=== PATIENT | female | born 1955 | race Caucasian/White ===

== ENCOUNTER → 2021-01-28 | Outpatient (CLI) | payer OTHER ==
[~2021-01-28] MED LIST: ASPI81CH PO; ATEN100 PO; ATOR40TA PO; Cyclobenzaprine10 MG PO; GABA300 PO; LOSA25 PO; METF500 PO
[2021-01-30 10:10] LABS: COTININE Negative ng/mL (Cutoff=300)
== END ==
LOC: LAB 11:42 → LAB SHORT 11:42
PROVIDERS: Orthopaedic Surgery
DX: Z01.812 Encounter for preprocedural laboratory examination (principal); M17.12 Unilateral primary osteoarthritis, left knee

== ENCOUNTER 2021-02-16 05:48 | Day surgery (SDC) | payer OTHER ==
[~2021-02-16] VITALS: Ht 167.6 cm; Wt 89.6 kg
[~2021-02-16 05:48] MED LIST changes: -ASPI81CH PO
--- NOTE | 2021-02-16 07:10 | NUR ---
Ambulatory in Day Surgery. Surgical site prepped with 2% Chlorhexidine cloth wipe. History, Chart, Medications and Allergies reviewed before start of procedure. Lungs clear T/O to Auscultation. Patient confirms NPO status and agrees with scheduled surgery. Pre-Op teaching done. Pt verbalizes understanding. Patient reports completing Chlorhexadine shower X2 prior to admission to hospital.
--- NOTE | 2021-02-16 10:56 | NUR ---
PT ARRIVED TO THE ROOM AT 1015. PT ALERT AND ORIENTED. SHE COMPLIANED OF 4/10 KNEE PAIN BUT REPORTS PAIN IS TOLERABLE AT REST. PT REPORTED URGE TO VOID. SHE WAS ASSISTED TO [facility] WITH 1 ASSIST, GAIT BELT AND WALKER. PT IS NOW SITTING UP IN THE CHAIR. PT IS TOLERATING SALTINE CRACKERS ND WATER. OXYCODONE GIVEN FOR PAIN. DRESSING TO LEFT KNEE C/D/I. WILL CONTINUE TO MONITOR.
--- NOTE | 2021-02-16 16:16 | NUR ---
02/16/21 1616 Kelin Moran VERIFICATIONS: EDIT CHART.
--- NOTE | 2021-02-16 18:04 | NUR ---
SHIFT SUMMARY PT IS POD#0 FROM L TKA. PAIN MANAGED WITH PO PAIN MEDICATION. PT WORKED WITH THERAPY AND IS A 1 PERSON ASSIST. PT TOLERATING PO. SHE HAS BEEN ABLE TO VOID. VSS. WILL MONITOR UNTIL REPORT TO DEVIN ZAMBRANO.
--- NOTE | 2021-02-17 03:40 | NUR ---
SHIFT SUMMARY POD1 FROM L TKA WITH DR. GOOD. PT'S L KNEE PAIN MANAGED WITH TORADOL, TYLENOL AND CHAITANYA. PT ALSO TOOK FLEXERIL AND GABAPENTIN (FOR CHRONIC NECK/BACK PAIN) LAST NIGHT. VSS. CBG AT HS WAS 166. NO COVERAGE GIVEN. PT ALSO WALKED IN THE HALLWAY TWICE LAST NIGHT. PT IS TOLERATING PO INTAKE DENIES NAUSEA AND VOMITING. PT STS SHE COULD NOT GET COMFORTABLE IN BED, HAD A HARD TIME TO SLEEP. SHE ALSO GOT UP IN THE BATHROOM MULTIPLE TIMES WITH 1 SBA (FWW AND GB). CALL LIGHT WITHIN REACH. WILL PROVIDE REPORT TO ONCOMING NURSE.
[2021-02-17 04:04] LABS: BASOPHILS ABSOLUTE AUTO 0.02 K/mm3 (0.00-0.23); BASOPHILS PERCENT AUTO 0 % (0-2); EOSINOPHILS ABSOLUTE AUTO 0.03 K/mm3 (0.00-0.68); EOSINOPHILS PERCENT AUTO 0 % (0-6); Hematocrit 33.3 % (33.0-51.0); Hemoglobin 10.9 g/dL (11.5-16.0); IMMATURE GRAN ABSOLUTE AUTO 0.04 K/mm3 (0.00-0.10); IMMATURE GRAN PERCENT AUTO 0 % (0-1); LYMPHOCYTES ABSOLUTE AUTO 2.13 K/mm3 (0.84-5.20); LYMPHOCYTES PERCENT AUTO 16 % (21-46); MONOCYTES ABSOLUTE AUTO 1.28 K/mm3 (0.16-1.47); MONOCYTES PERCENT AUTO 10 % (4-13); Mean Corpuscular HGB 30.4 pg (26.0-34.0); Mean Corpuscular HGB Conc 32.7 g/dL (31.5-36.5); Mean Corpuscular Volume 93 fL (80-100); Mean Platelet Volume 11.6 fL (9.1-12.4); NEUTROPHILS ABSOLUTE AUTO 9.98 K/mm3 (1.96-9.15); NEUTROPHILS PERCENT AUTO 74 % (41-73); Platelet Count 214 K/mm3 (150-400); RDW Coefficient Variation 13.1 % (11.7-14.2); RDW Standard Deviation 44.6 fL (35.1-46.3); Red Blood Cell Count 3.58 M/mm3 (3.80-5.20); White Blood Cell Count 13.48 K/mm3 (4.00-11.30)
[2021-02-17 04:23] LABS: Anion Gap 8 mmol/L (6-16); Blood Urea Nitrogen 18 mg/dL (8-24); Bun/Creatinine Ratio 31.7 (12.0-20.0); CO2, Blood 24 mmol/L (21-32); Calcium, Blood 8.5 mg/dL (8.5-10.1); Chloride, Blood 106 mmol/L (98-108); Creatinine, Blood 0.57 mg/dL (0.40-1.00); Glomerular Filtration Rate >60 (60-); Glucose, Blood 149 mg/dL (70-99); Sodium, Blood 138 mmol/L (136-145)
[2021-02-17] MEDS ORDERED: ASPI81CH PO (08:34)
--- NOTE | 2021-02-17 11:13 | NUR ---
0710- recvd report from previous shift penny Franklin. pt sleeping in chair, call light within reach, cryo/pas/teds on operative limb. 0820- dr chet munson on pt 1040- PT working with patient and daughter
--- NOTE | 2021-02-17 12:15 | NUR ---
provided pt and daughter with discharge instructions and printed education; both state understanding of instructions. aquacel dressing x 1 provided. peripheral IV removed WNL. pt's daughter transported belongings to awaiting vehicl. pt transported to vehicle via wheelchair
== END 2021-02-17 12:24 | disposition home or self-care (01) ==
LOC: ORSCMMR 05:48 → ORD 07:30 → SURS 10:35 → ORSCMMR 02-17 12:24
PROVIDERS: Orthopaedic Surgery
PROC: 8E0Y0CZ Robotic Assisted Procedure of Lower Extremity, Open Approach (ICD-10-PCS; principal; 2021-02-16 07:30)
PROC: 0SRD0JA Replacement of Left Knee Joint with Synthetic Substitute, Uncemented, Open Approach (ICD-10-PCS; principal; 2021-02-16 07:30)
DX: M17.12 Unilateral primary osteoarthritis, left knee (principal); I10 Essential (primary) hypertension; E78.5 Hyperlipidemia, unspecified; Z87.891 Personal history of nicotine dependence; E11.9 Type 2 diabetes mellitus without complications; K21.9 Gastro-esophageal reflux disease without esophagitis; Q05.9 Spina bifida, unspecified; M41.9 Scoliosis, unspecified; Z79.84 Long term (current) use of oral hypoglycemic drugs; Z79.899 Other long term (current) drug therapy
CPT/HCPCS: 27447; S2900; 36415; 73560-LT; 80048; 82947; 85025; 97110; 97110-CQ; 97116; 97116-CQ; 97161; 97530; 97530-CQ; A9270; C1776; J0171; J0690; J0735; J1100; J1815; J1885; J2250; J2405; J2704; J2795; J3010; J7120

== ENCOUNTER 2022-11-08 14:14 | Emergency (ER) | payer MEDICARE, OTHER ==
[~2022-11-08] VITALS: Ht 167.6 cm; Wt 99.8 kg
[~2022-11-08 14:14] MED LIST changes: +ASPI81CH PO
[2022-11-08 14:54] LABS: BASOPHILS ABSOLUTE AUTO 0.04 K/mm3 (0.00-0.23); BASOPHILS PERCENT AUTO 0 % (0-2); EOSINOPHILS ABSOLUTE AUTO 0.05 K/mm3 (0.00-0.68); EOSINOPHILS PERCENT AUTO 0 % (0-6); Hematocrit 39.1 % (33.0-51.0); Hemoglobin 12.9 g/dL (11.5-16.0); IMMATURE GRAN ABSOLUTE AUTO 0.05 K/mm3 (0.00-0.10); IMMATURE GRAN PERCENT AUTO 0 % (0-1); LYMPHOCYTES ABSOLUTE AUTO 1.76 K/mm3 (0.84-5.20); LYMPHOCYTES PERCENT AUTO 14 % (21-46); MONOCYTES ABSOLUTE AUTO 0.75 K/mm3 (0.16-1.47); MONOCYTES PERCENT AUTO 6 % (4-13); Mean Corpuscular HGB 28.7 pg (26.0-34.0); Mean Corpuscular Volume 87 fL (80-100); Mean Platelet Volume 11.3 fL (9.1-12.4); NEUTROPHILS PERCENT AUTO 79 % (41-73); Platelet Count 284 K/mm3 (150-400); RDW Coefficient Variation 13.2 % (11.7-14.2); RDW Standard Deviation 41.6 fL (35.1-46.3); Red Blood Cell Count 4.49 M/mm3 (3.80-5.20); White Blood Cell Count 12.85 K/mm3 (4.00-11.30)
[2022-11-08 15:07] LABS: Bilirubin, Total 0.6 mg/dL (0.1-1.0); Bun/Creatinine Ratio 20.6 (12.0-20.0); Calcium, Blood 9.2 mg/dL (8.5-10.1); Creatinine, Blood 0.63 mg/dL (0.40-1.00); Globulin, Blood 3.9 g/dL (2.2-4.0); Potassium, Blood 3.8 mmol/L (3.5-5.5); Total Protein, Blood 7.9 g/dL (6.4-8.2)
[2022-11-08] MEDS ORDERED: Pepcid40 MG PO (15:56)
== END 2022-11-08 16:30 | disposition home or self-care (01) ==
LOC: ER 14:14
PROVIDERS: Physician Assistant
DX: R10.13 Epigastric pain (principal); E11.9 Type 2 diabetes mellitus without complications; Z79.899 Other long term (current) drug therapy; Z79.82 Long term (current) use of aspirin
CPT/HCPCS: 36415; 71045; 80053; 83690; 83880; 84484; 85025; 93005; 93010; A9270

== ENCOUNTER 2023-06-25 08:38 | Emergency (ER) | payer MEDICARE, OTHER ==
[~2023-06-25] VITALS: Ht 167.6 cm; Wt 93.0 kg
[~2023-06-25 08:38] MED LIST changes: +Pepcid40 MG PO
[2023-06-25 10:20] LABS: Source, Urine Clean Catch
[2023-06-25 10:34] LABS: Appearance, Urine Hazy (Clear); Bilirubin, Urine Neg (Neg); Blood, Urine 1+ (Neg); Color, Urine Yellow (P-Yellow); Glucose Qualitative, Urine 1+ (Neg); Ketones, Urine 1+ (Neg); Leukocyte Esterase, Urine 3+ (Neg); Nitrite, Urine Neg (Neg); Protein, Urine 3+ (Neg); Specific Gravity, Urine 1.015 (1.003-1.022); Urobilinogen, Urine NORM (Normal)
[2023-06-25 10:44] LABS: BASOPHILS ABSOLUTE AUTO 0.05 K/mm3 (0.00-0.23); BASOPHILS PERCENT AUTO 0 % (0-2); EOSINOPHILS ABSOLUTE AUTO 0.04 K/mm3 (0.00-0.68); EOSINOPHILS PERCENT AUTO 0 % (0-6); Hematocrit 39.1 % (33.0-51.0); Hemoglobin 12.8 g/dL (11.5-16.0); IMMATURE GRAN ABSOLUTE AUTO 0.05 K/mm3 (0.00-0.10); IMMATURE GRAN PERCENT AUTO 0 % (0-1); LYMPHOCYTES ABSOLUTE AUTO 1.72 K/mm3 (0.84-5.20); LYMPHOCYTES PERCENT AUTO 14 % (21-46); MONOCYTES ABSOLUTE AUTO 0.56 K/mm3 (0.16-1.47); MONOCYTES PERCENT AUTO 5 % (4-13); Mean Corpuscular HGB 29.8 pg (26.0-34.0); Mean Corpuscular HGB Conc 32.7 g/dL (31.5-36.5); Mean Corpuscular Volume 91 fL (80-100); Mean Platelet Volume 11.1 fL (9.1-12.4); NEUTROPHILS ABSOLUTE AUTO 9.99 K/mm3 (1.96-9.15); NEUTROPHILS PERCENT AUTO 81 % (41-73); Platelet Count 237 K/mm3 (150-400); RDW Coefficient Variation 13.2 % (11.7-14.2); White Blood Cell Count 12.41 K/mm3 (4.00-11.30)
[2023-06-25 10:44] LABS: Mucus Heavy (0-Heavy)
[2023-06-25 10:47] LABS: Bacteria Many /hpf; Squamous Epithelial Cells Many /hpf (Few)
[2023-06-25 10:48] LABS: Hyaline Casts 0-2 /lpf (0-2); Renal Epithelial Rare /hpf (0-Rare); Transitional Epithelial Cells Rare /hpf (0-Rare)
[2023-06-25 11:06] LABS: Albumin, Blood 4.2 g/dL (3.4-5.0); Bilirubin, Total 0.5 mg/dL (0.1-1.0); Bun/Creatinine Ratio 23.1 (12.0-20.0); Calcium, Blood 9.1 mg/dL (8.5-10.1); Creatinine, Blood 0.65 mg/dL (0.40-1.00); Potassium, Blood 4.2 mmol/L (3.5-5.5); Total Protein, Blood 8.2 g/dL (6.4-8.2)
[2023-06-25 11:45] VITALS: BP 156/75
[2023-06-25] MEDS ORDERED: CARAFATE1 GM/10 M1 PO (11:45)
[2023-06-25] MEDS ORDERED: OMEP20ER PO (11:45)
[2023-06-25] MEDS ORDERED: HYDR1TAB94 PO (11:45)
[2023-06-25] MEDS ORDERED: ONDA4ODT MM (11:45)
== END 2023-06-25 11:59 | disposition home or self-care (01) ==
LOC: ER 08:38
PROVIDERS: Emergency Medicine
DX: R10.13 Epigastric pain (principal); R10.12 Left upper quadrant pain; D72.829 Elevated white blood cell count, unspecified; E11.9 Type 2 diabetes mellitus without complications; I10 Essential (primary) hypertension; E78.5 Hyperlipidemia, unspecified; Z79.84 Long term (current) use of oral hypoglycemic drugs; Z79.82 Long term (current) use of aspirin; Z79.899 Other long term (current) drug therapy
CPT/HCPCS: 76705; 80053; 81001; 83690; 85025; 87086; 93005; 93010; 99284-25; A9270

== ENCOUNTER 2024-08-25 02:24 | Emergency (ER) | payer MEDICARE, OTHER ==
[~2024-08-25] VITALS: Ht 167.6 cm; Wt 95.7 kg
[~2024-08-25 02:24] MED LIST changes: +CARAFATE1 GM/10 M1 PO; +HYDR1TAB94 PO; +OMEP20ER PO; +ONDA4ODT MM
[2024-08-25 02:49] VITALS: BP 154/74
[2024-08-25] MEDS ORDERED: Ofloxacin 0.3% Otic Soln 5 ML RIGHTEAR ONE (04:40)
[2024-08-25] MEDS ORDERED: OCUFLOX5 M9 RIGHTEAR (04:40)
== END 2024-08-25 05:12 | disposition home or self-care (01) ==
LOC: ER 02:24
DX: H60.91 Unspecified otitis externa, right ear (principal); Z79.84 Long term (current) use of oral hypoglycemic drugs; Z79.82 Long term (current) use of aspirin; Z79.899 Other long term (current) drug therapy; E11.9 Type 2 diabetes mellitus without complications; E78.5 Hyperlipidemia, unspecified; I10 Essential (primary) hypertension
CPT/HCPCS: 99282; A9270

== ENCOUNTER 2024-09-10 09:23 | Day surgery (SDC) | payer MEDICARE, OTHER ==
[2024-09-10] VITALS (11 sets, daily range): BP systolic 121–162; BP diastolic 65–79
[~2024-09-10] VITALS: Ht 163 cm; Wt 95.5 kg
[~2024-09-10 09:23] MED LIST changes: +CYCL10 PO; -LOSA25 PO; +LOSA50 PO; +Lactated Ringer's 1,000 ML IV SCH; +OCUFLOX5 M9 RIGHTEAR; +TRAZ50 PO
[2024-09-10] MEDS ORDERED: FUROSEMIDE20 MG PO (10:30)
[2024-09-10] MEDS ORDERED: ESTRADIOL0.5 MG PO (10:31)
[2024-09-10] MEDS ORDERED: KLOR-CON 1010 ME9 PO (10:31)
[2024-09-10] MEDS ORDERED: AMLODIPINE BESY10 MG PO (10:32)
[2024-09-10] MEDS ORDERED: propofoL 40 ML IV ONE (10:33)
--- NOTE | 2024-09-10 10:46 | NUR ---
History, Chart, Medications and Allergies reviewed before start of procedure. Patient up to Ambulate independently. Gait steady. Pre-Op teaching done. Pt verbalizes understanding. Patient confirms NPO status and agrees with scheduled surgery. Patient States Post-Procedure ride home has been arranged.
--- NOTE | 2024-09-10 11:00 | NUR ---
09/10/24 Obi Austin CONFIRMED AND REVIEWED H&P, MEDCICATIONS, ALLERGIES, MEDICAL HISTORY, RESPIRATORY HISTORY, VITAL SIGNS, 3-LEAD EKG, CONSENTS, AND PHYSICIAN ORDERS. PATIENT CONFIRMS NPO STATUS AND AGREES WITH SCHEDULED PROCEDURE. MONITOR INTACT WITH CONTINUOUS PULSE OXIMETRY, CAPNOGRAPHY, 3-LEAD EKG, INTERMITTENT BP. SUPPLEMENTAL O2 TO BE TITRATED THROUGHOUT PROCEDURE TO MAINTAIN O2 SATURATION ABOVE 90%. PATIENT DETERMINED TO BE ASA APPROPRIATE FOR PROPOFOL SEDATION PRIOR TO START OF PROCEDURE BY DR. DUMONT
--- NOTE | 2024-09-10 11:47 | NUR ---
Discharge instructions reviewed with patient. Patient verbalizes understanding. Copy given to patient to take home. Discharged via wheelchair to private car for ride home.
== END 2024-09-10 11:48 | disposition home or self-care (01) ==
LOC: ORSCMMR 09:23 → ORD 10:30 → ORSCMMR 10:30
PROVIDERS: Internal Medicine Gastroenterology
PROC: 0DJD8ZZ Inspection of Lower Intestinal Tract, Via Natural or Artificial Opening Endoscopic (ICD-10-PCS; principal; 2024-09-10 10:30)
DX: R19.7 Diarrhea, unspecified (principal); Z80.0 Family history of malignant neoplasm of digestive organs; K64.4 Residual hemorrhoidal skin tags; K64.8 Other hemorrhoids; E11.9 Type 2 diabetes mellitus without complications; I10 Essential (primary) hypertension; Z87.891 Personal history of nicotine dependence; Z79.84 Long term (current) use of oral hypoglycemic drugs; Z79.899 Other long term (current) drug therapy
CPT/HCPCS: 82947; J2704; J7120

== ENCOUNTER → 2025-08-26 | Outpatient (CLI) | payer MEDICARE, OTHER ==
[~2025-08-26] MED LIST changes: +AMLODIPINE BESY10 MG PO; +ESTRADIOL0.5 MG PO; +FUROSEMIDE20 MG PO; +KLOR-CON 1010 ME9 PO; -Lactated Ringer's 1,000 ML IV SCH
[2025-08-26 18:05] LABS: BASOPHILS ABSOLUTE AUTO 0.06 K/mm3 (0.00-0.23); BASOPHILS PERCENT AUTO 1 % (0-2); EOSINOPHILS ABSOLUTE AUTO 0.46 K/mm3 (0.00-0.68); EOSINOPHILS PERCENT AUTO 5 % (0-6); Hematocrit 42.8 % (33.0-51.0); Hemoglobin 13.5 g/dL (11.5-16.0); IMMATURE GRAN ABSOLUTE AUTO 0.02 K/mm3 (0.00-0.10); IMMATURE GRAN PERCENT AUTO 0 % (0-1); LYMPHOCYTES ABSOLUTE AUTO 3.01 K/mm3 (0.84-5.20); LYMPHOCYTES PERCENT AUTO 32 % (21-46); MONOCYTES ABSOLUTE AUTO 0.72 K/mm3 (0.16-1.47); MONOCYTES PERCENT AUTO 8 % (4-13); Mean Corpuscular HGB Conc 31.5 g/dL (31.5-36.5); Mean Corpuscular Volume 92 fL (80-100); NEUTROPHILS ABSOLUTE AUTO 5.04 K/mm3 (1.96-9.15); NEUTROPHILS PERCENT AUTO 54 % (41-73); NRBC ABSOLUTE 0.00 K/mm3 (0.00-0.02); NRBC Auto 0.0 /100 WBC (0.0-0.2); Platelet Count 272 K/mm3 (150-400); RDW Coefficient Variation 13.4 % (11.7-14.2); RDW Standard Deviation 45.4 fL (35.1-46.3)
[2025-08-26 20:01] LABS: Alanine Aminotransfer (ALT/SGP 22 U/L (12-78); Albumin, Blood 4.1 g/dL (3.4-5.0); Albumin/Globulin Ratio 1.0 (0.8-1.8); Anion Gap 11 mmol/L (3-11); Aspartate Aminotrans (AST/SGOT 18 U/L (12-37); Bilirubin, Total 0.6 mg/dL (0.1-1.0); Blood Urea Nitrogen 29 mg/dL (8-24); CHOL/HDL RATIO 2.9; CO2, Blood 23 mmol/L (21-32); Calcium, Blood 9.5 mg/dL (8.5-10.1); Chloride, Blood 104 mmol/L (98-108); Cholesterol 115 mg/dL (50-200); Creatinine, Blood 0.96 mg/dL (0.40-1.00); Globulin, Blood 4.1 g/dL (2.2-4.0); Glucose, Blood 151 mg/dL (70-99); HDL Cholesterol 39 mg/dL (>39); LDL/HDL RATIO 0.5; Low Density Lipoprotein Chol 20 mg/dL (0-110); Potassium, Blood 4.0 mmol/L (3.5-5.5); Sodium, Blood 134 mmol/L (136-145); Total Protein, Blood 8.2 g/dL (6.4-8.2); Triglycerides 278 mg/dL (30-160); Very Low Density Lipoprot Chol 55 mg/dL (6-32)
== END | disposition home or self-care (01) ==
LOC: LAB SHORT 10:39 → LAB 10:39
PROVIDERS: Student in an Organized Health Care Education/Training Program
DX: E11.9 Type 2 diabetes mellitus without complications (principal); E78.2 Mixed hyperlipidemia; I10 Essential (primary) hypertension
CPT/HCPCS: 80053; 80061; 83036; 85025